=== PATIENT | male | born 1945 | race Asian ===

== ENCOUNTER 2019-11-14 14:56 | Emergency (ER) | payer OTHER ==
[~2019-11-14] VITALS: Ht 172.7 cm; Wt 73.9 kg
[2019-11-14 14:58] VITALS: BP 96/52; TEMP 98.4
[2019-11-14 15:21] LABS: PLATELET COUNT 214 K/uL (142-355)
[2019-11-14 15:27] LABS: POTASSIUM 5.1 mmol/L (3.6-5.2)
[2019-11-15] MEDS ORDERED: AMLO2.5T PO (04:49)
[2019-11-15] MEDS ORDERED: ASPIRIN/ENTERIC81 MG PO (04:55)
[2019-11-15] MEDS ORDERED: LIPITOR40 MG PO (04:56)
[2019-11-15] MEDS ORDERED: CARV6.25 PO (04:57)
[2019-11-15] MEDS ORDERED: DILTIAZEM HCL PO (04:58)
[2019-11-15] MEDS ORDERED: FUROSEMIDE20 MG PO (04:59)
[2019-11-15] MEDS ORDERED: HYDRALAZINE50 MG PO (05:00)
[2019-11-15] MEDS ORDERED: ROWEEPRA XR500 MG PO (05:01)
[2019-11-15] MEDS ORDERED: ZESTRIL40 MG PO (05:02)
[2019-11-15] MEDS ORDERED: OLANZAPINE5 M1 PO (05:03)
[2019-11-15] MEDS ORDERED: QUETIAPINE100 MG PO (05:05)
[2019-11-15] MEDS ORDERED: POTASSIUM CHLO20 ME1 PO (05:05)
[2019-11-15] MEDS ORDERED: AMILORIDE5 MG PO (05:09)
== END 2019-11-14 16:51 | disposition other institution (70) ==
LOC: ED 14:56
PROVIDERS: Family Medicine
DX: U07.1 COVID-19 (principal); R46.89 Other symptoms and signs involving appearance and behavior; I10 Essential (primary) hypertension; F17.210 Nicotine dependence, cigarettes, uncomplicated; Z04.6 Encounter for general psychiatric examination, requested by authority
CPT/HCPCS: 80053; 85027; 87635; 99285; U0003

== ENCOUNTER 2019-11-26 09:36 | Inpatient (IN) | payer OTHER ==
[2019-11-26] VITALS (15 sets, daily range): BP systolic 83–106; BP diastolic 47–74; TEMP 98.2–99.1; Ht 177.8 cm; Wt 80.5 kg
[~2019-11-26] VITALS: Ht 177.8 cm; Wt 80.5 kg
[~2019-11-26 09:36] MED LIST: AMILORIDE5 MG PO; AMLO2.5T PO; ASPIRIN/ENTERIC81 MG PO; CARV6.25 PO; DILTIAZEM HCL PO; FUROSEMIDE20 MG PO; HYDRALAZINE50 MG PO; LIPITOR40 MG PO; OLANZAPINE5 M1 PO; POTASSIUM CHLO20 ME1 PO; QUETIAPINE100 MG PO; ROWEEPRA XR500 MG PO; ZESTRIL40 MG PO
[2019-11-26 11:20] LABS: PLATELET COUNT 204 K/uL (142-355)
[2019-11-26 11:28] LABS: POTASSIUM 4.8 mmol/L (3.6-5.2)
[2019-11-27] VITALS (46 sets, daily range): BP systolic 74–113; BP diastolic 25–71; TEMP 97–99.1
[2019-11-27 08:04] LABS: PLATELET COUNT 224 K/uL (142-355)
[2019-11-27 08:33] LABS: POTASSIUM 4.3 mmol/L (3.6-5.2)
[2019-11-28] VITALS (36 sets, daily range): BP systolic 78–171; BP diastolic 43–129; TEMP 97–98.5
[2019-11-28 05:41] LABS: PLATELET COUNT 254 K/uL (142-355)
[2019-11-28 06:32] LABS: POTASSIUM 4.6 mmol/L (3.6-5.2)
[2019-11-29] VITALS (21 sets, daily range): BP systolic 89–145; BP diastolic 39–70; TEMP 97–98.6
[2019-11-29 09:54] LABS: PLATELET COUNT 247 K/uL (142-355)
[2019-11-30] VITALS (23 sets, daily range): BP systolic 90–132; BP diastolic 50–91; TEMP 97–98.6
[2019-11-30 06:45] LABS: POTASSIUM 4.5 mmol/L (3.6-5.2)
[2019-11-30 06:58] LABS: PLATELET COUNT 237 K/uL (142-355)
[2019-12-01] VITALS (22 sets, daily range): BP systolic 84–126; BP diastolic 49–87; TEMP 97–98.8
[2019-12-01 06:09] LABS: PLATELET COUNT 268 K/uL (142-355)
[2019-12-01 06:27] LABS: POTASSIUM 4.4 mmol/L (3.6-5.2)
[2019-12-02] VITALS (22 sets, daily range): BP systolic 95–132; BP diastolic 41–88; TEMP 98.3–98.9
[2019-12-02 12:50] LABS: PLATELET COUNT 247 K/uL (142-355)
[2019-12-02 13:20] LABS: POTASSIUM 4.5 mmol/L (3.6-5.2)
[2019-12-03] VITALS (21 sets, daily range): BP systolic 101–160; BP diastolic 45–99; TEMP 98.4–98.8
[2019-12-03 06:30] LABS: PLATELET COUNT 260 K/uL (142-355)
[2019-12-03 06:49] LABS: POTASSIUM 4.4 mmol/L (3.6-5.2)
[2019-12-04] VITALS (17 sets, daily range): BP systolic 95–134; BP diastolic 47–82; TEMP 97.8–98.8
[2019-12-04 05:25] LABS: PLATELET COUNT 214 K/uL (142-355)
[2019-12-04 05:30] LABS: POTASSIUM 4.3 mmol/L (3.6-5.2)
[2019-12-05] VITALS (15 sets, daily range): BP systolic 85–134; BP diastolic 46–91; TEMP 97–100.5
[2019-12-06] VITALS (21 sets, daily range): BP systolic 84–179; BP diastolic 35–130; TEMP 97.7–98.4
[2019-12-06 05:17] LABS: PLATELET COUNT 181 K/uL (142-355)
[2019-12-06 05:28] LABS: POTASSIUM 4.7 mmol/L (3.6-5.2)
[2019-12-07] VITALS (15 sets, daily range): BP systolic 80–115; BP diastolic 34–76; TEMP 97.5–98.4
[2019-12-07 14:05] LABS: PLATELET COUNT 184 K/uL (142-355)
[2019-12-07 14:12] LABS: POTASSIUM 4.6 mmol/L (3.6-5.2)
[2019-12-08 00:51] VITALS: BP 160/67; TEMP 98.9
[2019-12-08 08:00] VITALS: BP 118/66; TEMP 98.3
[2019-12-08 12:00] VITALS: BP 125/85; TEMP 97.2
[2019-12-08 16:00] VITALS: BP 142/78; TEMP 98.8
[2019-12-08 20:00] VITALS: BP 104/56; TEMP 98.6
[2019-12-09] VITALS: BP 108/47; TEMP 98.5
[2019-12-09 04:00] VITALS: BP 112/52; TEMP 98.5
[2019-12-09 08:00] VITALS: BP 91/35; TEMP 99.1
[2019-12-09 20:00] VITALS: BP 122/53; TEMP 98.5
[2019-12-10] VITALS: BP 115/62; TEMP 98.7
[2019-12-10 03:58] VITALS: BP 126/69; TEMP 98.4
[2019-12-10] MEDS ORDERED: CORDARONE 200MG TAB PO (08:56)
== END 2019-12-11 01:45 | DRG 280 ==
LOC: ED 09:46 → ICU 17:18 → MED/SURG 12-07 15:04
PROVIDERS: Internal Medicine; Internal Medicine Endocrinology, Diabetes & Metabolism; ADMIT Emergency Medicine
DX: I48.92 Unspecified atrial flutter (principal); U07.1 COVID-19; I21.4 Non-ST elevation (NSTEMI) myocardial infarction; E43 Unspecified severe protein-calorie malnutrition; N30.00 Acute cystitis without hematuria; F20.89 Other schizophrenia; I69.354 Hemiplegia and hemiparesis following cerebral infarction affecting left non-dominant side; G40.802 Other epilepsy, not intractable, without status epilepticus; I47.1 Supraventricular tachycardia; B96.1 Klebsiella pneumoniae [K. pneumoniae] as the cause of diseases classified elsewhere; I10 Essential (primary) hypertension; I35.0 Nonrheumatic aortic (valve) stenosis; I95.89 Other hypotension; I69.391 Dysphagia following cerebral infarction; R13.19 Other dysphagia
CPT/HCPCS: 36415; 80048; 80053; 80162; 82550; 82553; 84439; 84443; 84484; 85027; 93005; 94760; 96360; 96375; 96376; 99285; C1751; J0153; J0282; J1160; J1335; J1650; J1940; J2060; J2270; J3490; P9047